=== PATIENT | female | born 1955 | race Caucasian/White ===

== ENCOUNTER 2017-07-30 17:43 | Emergency (ER) | payer BC, MEDICAID ==
[2017-07-30] MEDS ORDERED: TETANUS/DIPHTHERIA/PERTUSSIS 0.5 ML SYRINGE IM ONE ×2 (18:10→18:21)
--- NOTE | 2017-07-30 18:13 | ED Physician Documentation ---
PD HPI HEAD INJURY - Stated complaint Stated Complaint: FACIAL INJ - Chief complaint Chief Complaint: Trauma Hd/Nk - History obtained from History obtained from: Patient - History of Present Illness Mechanism of head injury: Other (She was stepping over a fence and fell forward , injuring both wrists and then impacting her face on the pavement. No loss of consciousness or significant headache. Tetanus is unknown. Mainly her pain is at her wrists and elbows bilaterally.) Review of Systems Constitutional: denies: Fever, Chills Eyes: denies: Loss of vision, Decreased vision Nose: denies: Rhinorrhea / runny nose, Congestion Throat: denies: Sore throat Cardiac: denies: Chest pain / pressure, Palpitations PD PAST MEDICAL HISTORY - Past Medical History Cardiovascular: None Respiratory: None Endocrine/Autoimmune: None GI: Hepatitis, Cholelithiasis : None HEENT: None, Other Psych: Depression, Anxiety, Post traumatic stress disorder Musculoskeletal: None Derm: Eczema - Past Surgical History General: Cholecystectomy, 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 HEENT: Tonsil/Adenoidectomy - Present Medications Home Medications: Ambulatory Orders Medication Instructions Recorded Confirmed HYDROcod/ACETAM 5/325 [[place] 5/325] 1 - 2 ea PO Q6H PRN #15 tablet 07/30/17 - Allergies Allergies/Adverse Reactions: Allergies Allergy/AdvReac Type Severity Reaction Status Date / Time No Known Drug Allergies Allergy Verified 07/30/17 17:54 - Social History Does the pt smoke?: No Smoking Status: Former smoker Does the pt drink ETOH?: No Substance Use and Type: Marijuana PD ED PE NORMAL - Vitals Vital signs reviewed: Yes - General General: Alert and oriented X 3, No acute distress - HEENT HEENT: PERRL, EOMI, Other (Over the bridge of the nose there is a deep abrasion and some swelling but no particular tenderness. All of her facial bones are nontender.) - Neck Neck: Supple, no meningeal sign, No bony TTP - Extremities Extremities: Other (She is mildly tender over the olecranon of both elbows but unable to straighten either one, she can fully range both of the shoulders. She is quite tender over theThe dorsal wrist in general on the left but both have good range of motion. The hands are nontender.) - Neuro Neuro: Alert and oriented X 3, Normal speech - Psych Psych: Normal mood, Normal affect Results - Vitals Vitals: Vital Signs - 24 hr 07/30/17 07/30/17 17:47 17:52 Temperature 36.1 C L Heart Rate 67 Respiratory 18 Rate Blood Pressure 141/93 H O2 Saturation 98 Oxygen O2 Source Room air - Rads (name of study) B wrist XR Radiology: EMP read contemporaneously (neg) B elbow XR Radiology: EMP read contemporaneously (Bilateral radial head fractures) Head CT Radiology: EMP read contemporaneously (Negative) PD MEDICAL DECISION MAKING - ED course ED course: 61-year-old woman with ground-level fall forward and is found to have bilateral radial head fractures but no wrist abnormality or intracranial abnormality, tetanus was updated. She was given pain medication and slings. The patient and family were counseled as to the diagnosis and need for follow- up. I counseled the patient with regard to signs and symptoms that would necessitate an urgent reevaluation in the emergency department. They understand they are welcome to return at any time if worse or if not improving as expected. This document was made in part using voice recognition software. While efforts are made to proofread this documents, sound alike and grammatical errors may occur. Departure - Departure Disposition: 01 Home, Self Care Clinical Impression: Sprain of wrist, left Qualifiers: Encounter type: initial encounter Qualified Code(s): S63.502A - Unspecified sprain of left wrist, initial encounter Right wrist sprain Qualifiers: Encounter type: initial encounter Qualified Code(s): S63.501A - Unspecified sprain of right wrist, initial encounter Fracture of radial head, left, closed Qualifiers: Encounter type: initial encounter Fracture alignment: nondisplaced Qualified Code(s): S52.125A - Nondisplaced fracture of head of left radius, initial encounter for closed fracture Right radial head fracture Qualifiers: Encounter type: initial encounter Fracture type: closed Fracture alignment: nondisplaced Qualified Code(s): S52.124A - Nondisplaced fracture of head of right radius, initial encounter for closed fracture Facial abrasion Qualifiers: Encounter type: initial encounter Qualified Code(s): S00.81XA - Abrasion of other part of head, initial encounter Condition: Good Record reviewed to determine appropriate education?: Yes Instructions: ED Fx Radial Head Follow-Up: [facility] [Provider Group] - Within 1 week Prescriptions: HYDROcod/ACETAM 5/325 [[place] 5/325] 1 - 2 ea PO Q6H PRN #15 tablet PRN Reason: Pain Comments: Your blood pressure was elevated today on check into the emergency department. This does not mean that you have hypertension, it is a common phenomenon to come to the emergency department and have elevated blood pressure. I recommend that she see your primary care physician within the week to have it rechecked when you are feeling better. Do not drink or drive while taking narcotic pain medication. Note that many narcotic pain relievers also contain Tylenol/acetaminophen. Please ensure that your total dose of acetaminophen from all sources does not exceed 3 g (3000 mg) per day. You may get constipated while on this medication. Take a stool softener such as Colace twice a day while you are on it. Also add an [id number] laxative such as senna or MiraLAX on any day that you do not have a bowel movement. If you received a narcotic pain medication or sedative while in the emergency department, do not drive for the next 24 hours. Forms: Activity restrictions
[2017-07-30] MEDS ORDERED: IBUPROFEN 800 MG TABLET PO STA (18:23)
[2017-07-30] MEDS ORDERED: IBUPROFEN 800 MG TABLET PO ONE (18:37)
--- NOTE | 2017-07-30 19:27 | XRAY Preliminary Report ---
Exam: XR Wrist 4 View BILAT IMPRESSION: No fracture or subluxation bilaterally. [facility] SITE ID: [id number]
--- NOTE | 2017-07-30 19:29 | XRAY Report ---
EXAMS: 1. Right Wrist Radiography 2. Left Wrist Radiography EXAM DATE: 07/30/2017 06:23 PM. CLINICAL HISTORY: Fall wrist pain b. COMPARISON: None. TECHNIQUE: 3 views each wrist. FINDINGS: Right: Bones: Normal. No fractures or bone lesions. Joints: Normal. No subluxations. Soft Tissues: Normal. No soft tissue swelling. Left: Bones: Normal. No fractures or bone lesions. Joints: Normal. No subluxations. Soft Tissues: Normal. No soft tissue swelling. IMPRESSION: No fracture or subluxation bilaterally. [facility] Referring Provider Line: [phone] SITE ID: [id number]
--- NOTE | 2017-07-30 19:36 | XRAY Preliminary Report ---
Exam: XR Elbow 3 View BILAT IMPRESSION: Bilateral radial head fractures with bilateral elbow joint effusion. No dislocation. [facility] SITE ID: [id number]
--- NOTE | 2017-07-30 19:38 | XRAY Report ---
EXAM: 1. Right Elbow Radiography 2. Left Elbow Radiography EXAM DATE: 07/30/2017 07:12 PM. CLINICAL HISTORY: Fall elbow pain b. COMPARISON: None. TECHNIQUE: 3 views each elbow. FINDINGS: Right: Bones: There is an intra-articular fracture of the radial head. There is a cortical step off with 3 m m of displacement. Joints: Joint space and alignment appear satisfactory. There is a right elbow joint effusion. Soft Tissues: Normal. No soft tissue swelling. Left: Bones: There is a cortical step-off of the radial head. Joints: There is a posterior fat pad consistent with a joint effusion. No dislocation. Soft Tissues: Normal. No soft tissue swelling. IMPRESSION: Bilateral radial head fractures with bilateral elbow joint effusion. No dislocation. [facility] Referring Provider Line: [phone] SITE ID: [id number]
--- NOTE | 2017-07-30 19:45 | CT Preliminary Report ---
Exam: CT Head W/O IMPRESSION: 1. No acute intracranial abnormalities. Specifically, no evidence of intracranial hemorrhage or fract ure. [facility] SITE ID: [id number]
--- NOTE | 2017-07-30 19:47 | CT Report ---
EXAM: CT HEAD EXAM DATE: 07/30/2017 07:24 PM. CLINICAL HISTORY: 61-year-old woman with head injury status post fall. COMPARISON: None. TECHNIQUE: Multiaxial CT images were obtained from the foramen magnum to the vertex. IV contrast: Non e. Reformats: Coronal. In accordance with CT protocol optimization, one or more of the following dose reduction techniques w ere utilized for this exam: automated exposure control, adjustment of mA and/or KV based on patient s ize, or use of iterative reconstructive technique. FINDINGS: Parenchyma: No evidence of acute infarct, hemorrhage, or mass lesion. The parenchyma demonstrates nor mal attenuation characteristics. Ventricles and Extra-axial Spaces: Ventricles are symmetric and normal in size. No extra-axial hemorr brennan or fluid collection. Orbits: Unremarkable. Sinuses: Paranasal sinuses and mastoid air cells are clear. Extracranial Soft Tissues and Bones: Soft tissues are unremarkable. No fractures. IMPRESSION: 1. No acute intracranial abnormalities. Specifically, no evidence of intracranial hemorrhage or fract ure. [facility] Referring Provider Line: [phone] SITE ID: [id number]
[2017-07-30] MEDS ORDERED: HYDROcod/ACETAM 5/325 MG TABLET PO STA (19:50)
[2017-07-30] MEDS ORDERED: HYDROcod/ACETAM 5/325 MG TABLET ONE (20:00)
[2017-07-30 20:15] VITALS: BP 144/91
== END 2017-07-30 20:25 | disposition home or self-care (01) ==
LOC: ED 17:43
DX: S52.125A Nondisplaced fracture of head of left radius, initial encounter for closed fracture (principal); S52.124A Nondisplaced fracture of head of right radius, initial encounter for closed fracture; S00.81XA Abrasion of other part of head, initial encounter; W18.39XA Other fall on same level, initial encounter; Y93.89 Activity, other specified; R03.0 Elevated blood-pressure reading, without diagnosis of hypertension; Z87.891 Personal history of nicotine dependence; Z23 Encounter for immunization
CPT/HCPCS: 70450; 73080; 73110; 90471; 90715; 99283; A9270

== ENCOUNTER 2017-09-06 12:42 | Outpatient (CLI) | payer MEDICAID ==
[2017-09-06 17:56] LABS: BASOPHILS # (AUTO) 0.1 10^3/uL (0.0-0.1); BASOPHILS % (AUTO) 1.2 %; EOSINOPHILS # (AUTO) 0.1 10^3/uL (0.0-0.7); EOSINOPHILS % (AUTO) 1.1 %; HCT - HEMATOCRIT 42.7 % (37.0-47.0); HGB - HEMOGLOBIN 14.1 g/dL (12.0-16.0); LYMPHOCYTES # (AUTO) 1.6 10^3/uL (1.5-3.5); MEAN CORPUSCULAR HEMOGLOBIN 29.9 pg (27.0-31.0); MEAN CORPUSCULAR HGB CONC 33.1 g/dL (32.0-36.0); MEAN CORPUSCULAR VOLUME 90.6 fL (81.0-99.0); MEAN PLATELET VOLUME 9.4 fL (7.9-10.8); MONOCYTES # (AUTO) 0.4 10^3/uL (0.0-1.0); MONOCYTES % (AUTO) 9.6 %; NEUTROPHILS # (AUTO) 2.5 10^3/uL (1.5-6.6); NEUTROPHILS % (AUTO) 54.1 %; NUCLEATED RED BLOOD CELLS AUTO 0.1 /100WBC; RED BLOOD COUNT 4.71 10^6/uL (4.20-5.40); RED CELL DISTRIBUTION WIDTH 12.7 % (12.0-15.0); UNCORRECTED WHITE BLOOD COUNT 4.6 x10^3/uL; WHITE BLOOD COUNT 4.6 x10^3/uL (4.8-10.8)
[2017-09-06 18:10] LABS: ALBUMIN/GLOBULIN RATIO 1.7 (1.0-2.2); BILIRUBIN,TOTAL 0.7 mg/dL (0.2-1.0); BUN - BLOOD UREA NITROGEN 11 mg/dL (6-20); CALCIUM 9.2 mg/dL (8.5-10.3); CARBON DIOXIDE - CO2 24 mmol/L (21-32); CHLORIDE 107 mmol/L (101-111); CREATININE 0.8 mg/dL (0.4-1.0); GFR - MDRD 73 (>89); GLUCOSE 105 mg/dL (70-100); POTASSIUM 4.2 mmol/L (3.5-5.0); SODIUM 139 mmol/L (135-145); TOTAL PROTEIN 7.2 g/dL (6.7-8.2)
[2017-09-06 18:23] LABS: THYROID STIMULATING HORMONE 6.56 uIU/mL (0.34-5.60)
== END 2017-09-06 12:43 | disposition home or self-care (01) ==
LOC: LAB.F 12:42
PROVIDERS: ATTEND Physician Assistant Medical
DX: Z00.00 Encounter for general adult medical examination without abnormal findings (principal); R53.83 Other fatigue; F41.8 Other specified anxiety disorders
CPT/HCPCS: 36415; 80053; 84439; 84443; 85025

== ENCOUNTER 2017-09-11 14:37 | Outpatient (CLI) | payer MEDICAID ==
--- NOTE | 2017-09-12 14:23 | DEXA Report ---
DEXA SCAN: 09/11/2017 HISTORY: Osteoporosis screening. TECHNIQUE: Dual energy x-ray absorptiometry (DXA) was performed on a [employer] system. Regions measured are the AP spine, femoral neck, and, if needed, forearm. COMPARISON: 08/27/2016. In accordance with the International Society for Clinical Densitometry (ISCD) guidelines, data from previous exams may be reanalyzed using current recommendations and techniques. This is done to allow a more accurate basis for comparison with the current study. FINDINGS Data for the lumbar spine is as follows: REGION BMD (g/cm/cm) T-SCORE Z-SCORE L1 0.995 -1.1 -1.0 L2 1.093 -0.9 -0.8 L3 1.111 -0.7 -0.6 L4 1.149 -0.4 -0.3 TOTAL 1.092 -0.7 -0.6 NOTE: All evaluable vertebrae are used for classification. Data for the hip is as follows: REGION BMD (g/cm/cm) T-SCORE Z-SCORE Neck 0.741 -2.1 -1.6 TOTAL 0.778 -1.8 -1.7 NOTE: The femoral neck or total proximal femur, whichever is lowest, is used for classification. DXA RESULTS SUMMARY: Spine SCAN DATE AGE BMD T-SCORE BMD CHANGE VS BASELINE BMD CHANGE VS PREVIOUS 09/11/2017 62 1.092 -- -0.23 -2.1 08/27/2016 61 1.115 -- -- -- * Denotes significant change at the 95% confidence level. Denotes dissimilar scan types or analysis methods. DXA RESULTS SUMMARY: Total hip SCAN DATE AGE BMD T-SCORE BMD CHANGE VS BASELINE BMD CHANGE VS PREVIOUS 09/11/2017 62 0.778 -- -0.001 -0.1 08/27/2016 61 0.779 -- -- -- * Denotes significant change at the 95% confidence level. Denotes dissimilar scan types or analysis methods. IMPRESSION 1. THE WHO CLASSIFICATION BASED ON THE INTERNATIONAL REFERENCE STANDARD IS OSTEOPENIA. FRACTURE RISK IS INCREASED. 2. DECREASE IN LUMBAR SPINE DENSITY IS -2.1%, AND THE DECREASED DENSITY OF THE FEMUR TOTAL IS -0.1%. RECOMMENDATION: Patients with diagnosis of osteoporosis or osteopenia should have regular bone mineral density assessment. For those eligible for Medicare, routine testing is allowed once every 2 years. Testing frequency can be increased for patients who have rapidly progressing disease or for those who are receiving medical therapy to restore bone mass. COMMENT: World Health Organization (WHO) definitions for osteoporosis and osteopenia: NORMAL BMD: T-score at -1.0 or higher, fracture risk is low. OSTEOPENIA BMD: T-score between -1.0 and -2.5, fracture risk is increased. OSTEOPOROSIS BMD: T-score at -2.5 or lower, fracture risk high. National Osteoporosis Foundation recommends: 1. Obtain adequate dietary calcium (at least 1200 mg per day) and vitamin D (400 -800 international units per day). 2. Participate, as appropriate, in regular weightbearing and muscle- strengthening exercise. 3. Avoid tobacco use and reduce alcohol and caffeine intake. 4. For more detailed information see the website at www.NOF.org. MTDD
== END 2017-09-11 14:38 | disposition home or self-care (01) ==
LOC: DI 14:37
PROVIDERS: ATTEND Physician Assistant Medical
DX: Z00.00 Encounter for general adult medical examination without abnormal findings (principal); Z13.820 Encounter for screening for osteoporosis; M85.88 Other specified disorders of bone density and structure, other site
CPT/HCPCS: 77080

== ENCOUNTER 2017-10-29 09:31 | Outpatient (CLI) | payer MEDICAID ==
--- NOTE | 2017-10-29 12:12 | Ultrasound Report ---
EXAM: PELVIC ULTRASOUND EXAM DATE: 10/29/2017 10:11 AM. CLINICAL HISTORY: Abnormal vaginal bleeding. Postmenopausal for 12 years. Left-sided pelvic pain. His tory of tubal ligation. G5, P 3. COMPARISON: 04/14/2010. TECHNIQUE: Realtime transabdominal pelvic scan performed to identify the uterus and adnexa and as an overview of other pelvic structures, followed by transvaginal scan to provide greater detail of the u terus and adnexa, with static image documentation. FINDINGS: Uterus: 6 x 2.6 x 4 cm, volume 70.5 cc. Anteverted position. Normal overall size and echotexture. Masses: None. Endometrium: 5 mm. Slightly complex cystic area seen in the lower uterine segment of the uterus withi n the endometrial cavity. 4 x 2 x 4 mm small focus of fluid or cyst within the endometrium. Cervix: Unremarkable. Right Ovary: Not visualized. Left Ovary: Not visualized. Free Fluid: None. Other: None. IMPRESSION: 1. Normal uterine volume. 2. Endometrial thickness measures 5 mm considered upper normal in thickness for a postmenopausal sharon ent. Mildly complex cystic area in the endometrial cavity in lower segment of the uterus with small f ocus of loculated fluid versus endometrial cyst measuring 4 mm also present. If clinical symptoms per sist, endometrial tissue sampling recommended. Otherwise continued surveillance is recommended with f ollow-up pelvic ultrasound in 3-6 months. 3. Ovaries are not visualized. [facility] Referring Provider Line: [phone] SITE ID: [id number]
== END 2017-10-29 09:32 | disposition home or self-care (01) ==
LOC: DI 09:31
PROVIDERS: ATTEND Physician Assistant Medical
DX: N85.8 Other specified noninflammatory disorders of uterus (principal); L68.0 Hirsutism; E03.9 Hypothyroidism, unspecified
CPT/HCPCS: 36415; 76830; 76856; 82670; 84144; 84403; 84439; 84443; 84481

== ENCOUNTER 2017-10-29 11:05 | Outpatient (CLI) | payer MEDICAID ==
[2017-10-29 19:01] LABS: THYROID STIMULATING HORMONE 9.34 uIU/mL (0.34-5.60)
[2017-10-29 19:02] LABS: FREE T3 3.27 pg/mL (2.5-3.9)
[2017-10-30 10:40] LABS: PROGESTERONE <0.5 ng/mL
== END 2017-10-29 11:06 | disposition home or self-care (01) ==
LOC: LAB.F 11:05
PROVIDERS: ATTEND Physician Assistant Medical
DX: N93.9 Abnormal uterine and vaginal bleeding, unspecified (principal); L68.0 Hirsutism; E03.9 Hypothyroidism, unspecified
CPT/HCPCS: 36415; 82670; 84144; 84403; 84439; 84443; 84481